=== PATIENT | male | born 1990 | race Caucasian/White ===

== ENCOUNTER 2020-10-27 18:44 | Emergency (ER) | payer OTHER ==
[2020-10-27 18:55] VITALS: O2SAT 99
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
[2020-10-27] MEDS ORDERED: TORAdol 30 mg Injection IM ONE (19:35)
[2020-10-27] MEDS ORDERED: TORAdol 30 mg Injection ONE (19:37)
[2020-10-27 19:53] VITALS: BP 125/86; PULSE 76
--- NOTE | 2020-10-27 21:49 | XRAY ---
Indication: Pain and swelling following injury. Comparison: None 3 view left ankle demonstrates lateral soft tissue swelling and tiny distal tibia spur anteriorly. No other bony, articular, or soft tissue abnormalities.
== END 2020-10-27 19:45 | disposition home or self-care (01) ==
LOC: ED 18:44
DX: S93.492A Sprain of other ligament of left ankle, initial encounter (principal); V86.55XA Driver of 3- or 4- wheeled all-terrain vehicle (ATV) injured in nontraffic accident, initial encounter; Y93.89 Activity, other specified; Y92.89 Other specified places as the place of occurrence of the external cause; M25.472 Effusion, left ankle
CPT/HCPCS: 73610; 96372; 99284; J1885